=== PATIENT | male | born 1990 | race Caucasian/White ===

== ENCOUNTER 2018-05-02 17:30 | Emergency (ER) | payer MEDICAID ==
[~2018-05-02] VITALS: Ht 185.4 cm; Wt 74.9 kg
[2018-05-02 18:44] VITALS: BP 118/79
[2018-05-02] MEDS ORDERED: METHOCARBAMOL 750 MG TABLET PO ONE (19:00)
[2018-05-02] MEDS ORDERED: KETOROLAC 30 MG/1 ML IM ONE (19:00)
[2018-05-02] MEDS ORDERED: METHOCARBAMOL 750 MG TABLET ONE (19:13)
[2018-05-02] MEDS ORDERED: KETOROLAC 30 MG/1 ML ONE (19:14)
== END 2018-05-02 19:26 | disposition home or self-care (01) ==
LOC: ED 18:24
DX: S09.90XA Unspecified injury of head, initial encounter (principal); S19.9XXA Unspecified injury of neck, initial encounter; Y08.89XA Assault by other specified means, initial encounter; Y99.8 Other external cause status; Y93.89 Activity, other specified; Y92.89 Other specified places as the place of occurrence of the external cause
CPT/HCPCS: 72125; 96372; 99284; J1885